=== PATIENT | female | born 1995 | race Two or more races ===

== ENCOUNTER 2020-01-24 13:35 | Emergency (ER) | payer OTHER ==
[~2020-01-24] VITALS: Ht 157.5 cm; Wt 60.0 kg
[2020-01-24] MEDS ORDERED: LIDOCAINE-MPF 1%, 5ML INFIL ONE (14:00)
[2020-01-24] MEDS ORDERED: LIDOCAINE-MPF 1%, 5ML ONE (15:54)
[2020-01-24] MEDS ORDERED: LORazepam 1MG TABLET ONE (15:54)
[2020-01-24] MEDS ORDERED: LORazepam 1MG TABLET PO ONE (16:00)
[2020-01-24 17:09] VITALS: BP 123/75
== END 2020-01-24 17:17 | disposition home or self-care (01) ==
LOC: ED 17:10
DX: L02.214 Cutaneous abscess of groin (principal); L03.314 Cellulitis of groin
CPT/HCPCS: 99283